=== PATIENT | male | born 1990 | race Two or more races ===

== ENCOUNTER 2023-07-04 19:45 | Emergency (ER) | payer OTHER ==
[~2023-07-04] VITALS: Ht 177.8 cm; Wt 66.2 kg
[2023-07-04 21:52] LABS: HEMATOCRIT 49.4 % (39.0-48.0); HEMOGLOBIN 16.4 g/dL (13-16.00); MEAN CELL VOLUME 86.7 fL (80.0-100.00); MEAN CORPUSCULAR HEMOGLOBIN 28.8 pg (27.00-32.0); MEAN CORPUSCULAR HGB CONC 33.2 g/dl (32.0-36.0); PLATELET COUNT 250 K/uL (150-450); RED BLOOD COUNT 5.69 M/uL (4.00-6.00); RED CELL DISTRIBUTION WIDTH 13.5 % (11.5-14.5)
[2023-07-04 22:01] LABS: CREATININE SERUM 1.2 mg/dL (0.70-1.30); GFR 69.73; POTASSIUM 4.15 mEq/L (3.5-5.1)
[2023-07-05 00:26] LABS: URINE APPEARANCE Clear; URINE BILIRRUBIN Negative (NEGATIVE); URINE BLOOD Negative; URINE COLOR Yellow; URINE GLUCOSE Negative (NEGATIVE); URINE LEUKOCYTE Negative; URINE NITRATE Negative; URINE PROTEIN Negative (NEGATIVE); URINE UROBILINOGEN 0.2 E.U./dl
[2023-07-05 00:30] LABS: URINE BACTERIA 7.5 uL (0.0-1933); URINE EPITHELIAL CELLS 8.6 uL (0.0-38.8); URINE WBC 5.8 uL (0.0-23.2)
[2023-07-05 00:34] LABS: URINE RBC 1.5 uL (0.0-20.8)
== END 2023-07-05 10:19 | disposition home or self-care (01) ==
LOC: ER 19:45
PROVIDERS: General Practice
DX: K52.89 Other specified noninfective gastroenteritis and colitis (principal); R10.32 Left lower quadrant pain